=== PATIENT | male | born 1930 | race Asian ===

== ENCOUNTER 2019-04-28 13:46 | Emergency (ER) | payer MEDICARE, OTHER ==
[~2019-04-28] VITALS: Ht 172.7 cm; Wt 68.2 kg
[2019-04-28] MEDS ORDERED: 0.9% SODIUM CHLORIDE 10 ML SYRINGE IVP ONE (13:48)
[2019-04-28] MEDS ORDERED: ATROPINE SULFATE 0.1 MG/ML 10 ML SYRINGE IVP ONE (13:48)
[2019-04-28] MEDS ORDERED: SODIUM BICARBONATE [ADULT] 8.4% 50 MEQ/50 ML SYRINGE IVP ONE (13:48)
[2019-04-28] MEDS ORDERED: 0.9% SODIUM CHLORIDE 1,000 ML BAG IV ONE (13:48)
[2019-04-28] MEDS ORDERED: EPINEPHrine 1:10,000 [1 MG/10 ML] SYRINGE IVP ONE (13:48)
[2019-04-28 14:03] VITALS: BP 0/0
[2019-04-28] MEDS ORDERED: BUDE0.255 NEB (16:08)
[2019-04-28] MEDS ORDERED: BRINOS OP (16:08)
[2019-04-28] MEDS ORDERED: ARFO15VI2 IH (16:08)
[2019-04-28] MEDS ORDERED: ATOR20TA86 PO (16:08)
[2019-04-28] MEDS ORDERED: HYPR15DR23 OU (16:08)
[2019-04-28] MEDS ORDERED: BICA50TA8 PO (16:08)
[2019-04-28] MEDS ORDERED: APIX2.5T PO (16:08)
[2019-04-28] MEDS ORDERED: IPRA3AMP23 IH (16:24)
[2019-04-28] MEDS ORDERED: XALA2.5OS OS (16:24)
[2019-04-28] MEDS ORDERED: DOCU-342 PO (16:24)
[2019-04-28] MEDS ORDERED: PRED10 PO (16:24)
[2019-04-28] MEDS ORDERED: DILT60 PO (16:24)
[2019-04-28] MEDS ORDERED: DOCU-275 PO (16:24)
[2019-04-28] MEDS ORDERED: MONT10TA21 PO (16:24)
[2019-04-28] MEDS ORDERED: TAMS-13 PO (16:24)
[2019-04-28] MEDS ORDERED: FLUT9.9S NASAL (16:24)
== END 2019-04-28 17:30 | disposition expired ==
LOC: EMS 13:47
DX: I46.9 Cardiac arrest, cause unspecified (principal); E78.00 Pure hypercholesterolemia, unspecified
CPT/HCPCS: 31500; 82962; 92950; 99285; J0171; J0461; J3490; J7030